=== PATIENT | female | born 1970 | race Caucasian/White ===

== ENCOUNTER → 2022-09-07 15:08 | Outpatient (CLI) | payer OTHER, MEDICAID, SELFPAY | PROVIDERS: PCP Family Medicine; Visit Provider Family Medicine | DX: L02.91 Cutaneous abscess, unspecified (principal) | CPT/HCPCS: 87070; 87075; 87077; 87186; 87205 ==

== ENCOUNTER → 2023-02-15 14:38 | Outpatient (CLI) | payer OTHER, MEDICAID, SELFPAY ==
--- NOTE | 2023-02-15 14:40 | DI.US.S_ITS ---
PROCEDURE: US EXTREMITY NONVASC LOWER LT INDICATIONS: POSTERIOR KNEE PAIN EVALUATE FOR BAKERS CYST TECHNIQUE: Real-time scanning was performed of the left popliteal fossa, with image documentation. COMPARISON: [facility] ([facility]), CR, XR KNEE LT 3V, 02/07/2023, 16:45. FINDINGS: Images of the left popliteal fossa demonstrate no focal fluid collection or cyst. No significant sonographic abnormality is seen. IMPRESSION: No Rivers cyst or significant sonographic abnormality at the popliteal fossa. Approved by: Naresh Conklin M.D. on 02/15/2023 at 17:14
== END ==
PROVIDERS: PCP Family Medicine; Referring Provider Family Medicine; Visit Provider Family Medicine
DX: Z86.19 Personal history of other infectious and parasitic diseases (principal); M25.562 Pain in left knee
CPT/HCPCS: 76882

== ENCOUNTER → 2023-02-20 13:27 | Outpatient (CLI) | payer OTHER, MEDICAID, SELFPAY ==
[2023-02-20 19:35] LABS: Add Manual Diff / Slide Review NO; Basophils Absolute Auto 0 /uL (0-100); Basophils Percent Auto 0.6 % (0-2); Eosinophils Absolute Auto 0 /uL (0-450); Eosinophils Percent Auto 0.4 % (2-4); Hematocrit 41.2 % (41-53); Hemoglobin 14.3 g/dL (13.5-17.5); Lymphocytes Absolute Auto 1400 /uL (1100-4500); Lymphocytes Percent Auto 32.4 % (25-40); Mean Corpuscular HGB Conc 34.7 % (30-36); Mean Corpuscular Hemoglobin 31.2 PG (26-34); Mean Corpuscular Volume 89.9 fL (80-100); Monocytes Absolute Auto 400 /uL (0-900); Monocytes Percent Auto 8.8 % (3-14); Neutrophils Absolute Auto 2500 /uL (1500-7000); Neutrophils Percent Auto 57.8 % (50-75); Platelet Count 206 X10^3/uL (150-400); Red Blood Cell Count 4.58 X10^6/uL (4.5-5.9); Red Cell Distribution Width 12.5 % (11.6-14.8); White Blood Cell Count 4.3 X10^3/uL (4.5-11.0)
[2023-02-20 19:45] LABS: Alanine Aminotransferase 26 IU/L (<50); Albumin 4.3 g/dL (3.5-5.0); Albumin Globulin Ratio 1.5 (1.0-2.8); Alkaline Phosphatase 47 U/L (38-126); Aspartate Aminotransferase 42 IU/L (17-59); BUN Creatinine Ratio 17.4 (6-22); Bilirubin Total 0.4 mg/dL (0.2-1.3); Blood Urea Nitrogen 12 mg/dL (9-20); Calcium 9.6 mg/dL (8.4-10.2); Carbon Dioxide 31 mmol/L (22-32); Chloride 96 mmol/L (98-107); Estimated Glomerular Filt Rate > 60 mL/min (>60); Globulin 2.9 g/dL (1.7-4.1); Glucose 91 mg/dL (70-100); HEMOLYSIS < 15 (0-50); Potassium 4.3 mmol/L (3.4-5.1); Sodium 133 mmol/L (137-145); Total Protein 7.2 g/dL (6.3-8.2); Uric Acid 5.5 mg/dL (3.5-8.5)
[2023-02-20 19:58] LABS: High Sensitivity CRP - Cardiac < 0.3 mg/L (1.0-3.0); LDL Cholesterol Direct 92 mg/dL (<100)
[2023-02-20 19:59] LABS: Rheumatoid Factor < 8.6 IU/mL (<12.0)
[2023-02-20 20:19] LABS: Erythrocyte Sedimentation Rate 4 MM/HR (0-15)
[2023-02-24 18:03] LABS: ANA Screen, IFA Negative (.)
== END ==
PROVIDERS: PCP Family Medicine; Visit Provider Family Medicine
DX: M25.569 Pain in unspecified knee (principal); G62.9 Polyneuropathy, unspecified; Z86.19 Personal history of other infectious and parasitic diseases; Z13.1 Encounter for screening for diabetes mellitus; Z13.6 Encounter for screening for cardiovascular disorders
CPT/HCPCS: 80053; 83721; 84550; 85025; 85651; 86038; 86140; 86430

== ENCOUNTER → 2023-05-26 11:16 | Outpatient (CLI) | payer OTHER, MEDICAID, SELFPAY ==
--- NOTE | 2023-05-26 11:17 | DI.MRI.S_ITS ---
PROCEDURE: MR KNEE LT WO CON INDICATIONS: Left knee pain TECHNIQUE: Noncontrast sagittal PD fast spin echo and T2 fast spin echo with fat saturation, sagittal 3-D FLASH with fat saturation; coronal T1 spin echo and PD fast spin echo with fat saturation, and axial PD fast spin echo with fat saturation through the knee. COMPARISON: None. FINDINGS: Image quality: Excellent. Menisci: The medial and lateral menisci demonstrate normal morphology and internal signal. The meniscal root ligaments appear intact. Cruciate ligaments: The anterior cruciate ligament is thickened. The posterior cruciate ligament is intact. Medial structures: The medial collateral ligament appears thickened with surrounding soft tissue edema near its femoral insertion. Visualized portions of the pes anserinus tendons appear normal. No abnormal bursal fluid. Lateral structures: The lateral collateral ligament, long and short heads of the biceps femoris tendon appear intact. The popliteus tendon appears normal. Iliotibial band appears normal. Anterior structures: Distal quadriceps tendon is thickened at its superior patellar insertion. Proximal patella tendon is also thickened at its inferior patellar insertion. Patellar alignment is normal. No edema in the infrapatellar fat pad. Bones and cartilage: No bone marrow contusions or fractures. Mild tricompartmental osteoarthritis and chondromalacia is seen more notably in medial femoral tibial compartment. Joint space: There is small knee joint fluid. There is a small popliteal cyst measures 1.8 x 1 x 4.1 cm in size. Normal appearing synovial plicae are incidentally noted. IMPRESSION: 1. 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 No fracture or dislocation. Small joint effusion and a small popliteal cyst. No gross loose bodies. 2. Low to moderate grade proximal MCL sprain/partial-thickness tear. The cruciate ligaments are intact. 3. No focal meniscal tear. 4. Distal quadriceps tendinosis and proximal patellar tendinosis. Dictated by: Abilio Cross M.D. on 05/27/2023 at 12:19 Approved by: Abilio Cross M.D. on 05/27/2023 at 12:26
== END ==
LOC: MRI 11:16
PROVIDERS: PCP Family Medicine; Referring Provider Family Medicine; Visit Provider Family Medicine
DX: M17.12 Unilateral primary osteoarthritis, left knee (principal); S83.412A Sprain of medial collateral ligament of left knee, initial encounter; M25.562 Pain in left knee; M94.262 Chondromalacia, left knee; M25.462 Effusion, left knee; G89.29 Other chronic pain
CPT/HCPCS: 73721

== ENCOUNTER → 2023-12-25 14:23 | Outpatient (CLI) | payer OTHER, MEDICAID, SELFPAY ==
--- NOTE | 2023-12-25 14:26 | DI.RAD.S_ITS ---
PROCEDURE: XR SHOULDER RT MIN 2V INDICATIONS: past hx R.shoulder injury. worsening pain. decrease ROM TECHNIQUE: 3 views of the shoulder were acquired. COMPARISON: None. FINDINGS: Bones: No fractures or dislocations. No suspicious bony lesions. Visualized ribs appear intact. Mild acromioclavicular narrowing. Soft tissues: No suspicious soft tissue calcifications. IMPRESSION: No visualized acute fracture or dislocation. However, if clinical concern and/or pain persist, short interval imaging followup in 7-10 days is recommended, as occult injury cannot be definitively excluded. Dictated by: Daniela Villafuerte M.D. on 12/25/2023 at 22:32 Approved by: Daniela Villafuerte M.D. on 12/25/2023 at 22:32
--- NOTE | 2023-12-25 14:26 | DI.RAD.S_ITS ---
PROCEDURE: XR CERVICAL SPINE 2V OR 3V INDICATIONS: Neck pain with radiculopathy TECHNIQUE: 3 view(s) of the cervical spine were acquired. COMPARISON: None. FINDINGS: Bones: No fractures or dislocations to the T1 level. The lateral masses of C1 appear intact on the odontoid view. No suspicious bony lesions. There is trace retrolisthesis of C4 on C5, C5-C6 and C6 on C7. There is moderate to severe disc space narrowing at C5-6, C6-7. Multilevel uncovertebral arthropathy is present. Soft tissues: No prevertebral soft tissue swelling. IMPRESSION: Degenerative changes as above. Dictated by: Daniela Villafuerte M.D. on 12/25/2023 at 22:31 Approved by: Daniela Villafuerte M.D. on 12/25/2023 at 22:31
== END ==
LOC: RAD 14:25
PROVIDERS: PCP Family Medicine; Referring Provider Physician Assistant; Visit Provider Physician Assistant
DX: S49.91XA Unspecified injury of right shoulder and upper arm, initial encounter (principal); M25.511 Pain in right shoulder; M47.812 Spondylosis without myelopathy or radiculopathy, cervical region; M54.2 Cervicalgia; X58.XXXA Exposure to other specified factors, initial encounter
CPT/HCPCS: 72040; 73030

== ENCOUNTER → 2024-03-15 14:26 | Outpatient (CLI) | payer OTHER, MEDICAID, SELFPAY ==
--- NOTE | 2024-03-15 14:28 | DI.MRI.S_ITS ---
PROCEDURE: MR SHOULDER RT WO CON INDICATIONS: ongoing right shoulder pain. PT/home exercises worsening johnathon TECHNIQUE: Noncontrast oblique coronal T2 fast spin echo with fat saturation, oblique sagittal T1 spin echo and T2 fast spin echo with fat saturation, axial T1 spin echo and T2 fast spin echo with fat saturation through the shoulder. COMPARISON: [facility], CR, XR SHOULDER RT MIN 2V, 12/25/2023, 14:25. FINDINGS: Image quality: Excellent. Rotator cuff: Distal supraspinatus and infraspinatus tendinosis at their insertions on greater trochanter. The subscapularis tendon is also thickened with suggestion of low-grade intrasubstance partial-thickness tear. No full-thickness rotator cuff tendon rupture. Sagittal images demonstrate no significant rotator cuff muscle atrophy. Bones and bursae: [id number] osteoarthritic changes are noted in acromioclavicular joint with joint space narrowing, subchondral sclerosis and small marginal osteophyte formation depressing the musculotendinous junction of supraspinatus. Marrow edema involving distal clavicle and adjacent acromion is seen without discrete fracture line. No other area of abnormal marrow signal. No significant joint effusion or subacromial subdeltoid bursal fluid. Capsule and soft tissues: There is fraying of superior anterior glenoid labrum with T2 hyperintense signal suggestive of superior anterior labral tear. The long head of the biceps tendon appears thickened. IMPRESSION: 1. Distal supraspinatus and infraspinatus tendinosis. Tendinosis and low-grade intrasubstance partial-thickness tear involving distal subscapularis. No full-thickness rotator cuff tendon rupture. No significant rotator cuff muscle atrophy. 2. [id number] acromioclavicular joint osteoarthritis. No fracture or dislocation. Contusion involving distal clavicle and adjacent acromion without discrete fracture line. No significant joint effusion or subacromial subdeltoid bursal fluid. 3. Finding is concerning for subtle superior anterior glenoid labral tear. 4. Proximal long head of biceps tendinosis. Dictated by: Abilio Cross M.D. on 03/16/2024 at 15:29 Approved by: Abilio Cross M.D. on 03/16/2024 at 15:44
--- NOTE | 2024-03-15 14:28 | DI.MRI.S_ITS ---
PROCEDURE: MR HEAD/BRAIN WO/W CON INDICATIONS: dizziness, vision changes, pulsations. TECHNIQUE: Noncontrast axial T1 spin echo, axial T2 fast spin echo, sagittal and axial FLAIR, coronal T2 fast spin echo, axial gradient echo, axial diffusion and ADC through the brain. After the administration of contrast, axial and coronal and sagittal 3D VIBE or T1 spin echo with fat saturation through the brain. COMPARISON: None. FINDINGS: Image quality: Excellent. CSF Spaces: Basal cisterns are patent. No extra-axial fluid collections. Ventricles are normal in size and shape. Brain: No midline shift. Prominent perivascular space in the left basal ganglia is incidentally noted. No intracranial bleeds or masses. No abnormal intracranial enhancement. The brainstem appears normal. Diffusion-weighted images demonstrate no acute infarct. No chronic ischemic insults. Normal intravascular flow voids are present. Skull and face: Calvarial marrow is normal in signal. Orbits appear normal. Sinuses: Sinuses and mastoids appear clear. IMPRESSION: No cause for patient's symptoms identified. No acute intracranial abnormalities. Dictated by: Edmond Wynn M.D. on 03/16/2024 at 11:40 Approved by: Edmond Wynn M.D. on 03/16/2024 at 11:45
== END ==
PROVIDERS: PCP Physician Assistant; Referring Provider Physician Assistant; Visit Provider Physician Assistant
DX: S49.91XA Unspecified injury of right shoulder and upper arm, initial encounter (principal); M19.011 Primary osteoarthritis, right shoulder; M25.511 Pain in right shoulder; R42 Dizziness and giddiness; H54.7 Unspecified visual loss; M77.8 Other enthesopathies, not elsewhere classified; Z84.89 Family history of other specified conditions
CPT/HCPCS: 70553; 73221; A9579

== ENCOUNTER → 2024-03-27 08:31 | Outpatient (CLI) | payer OTHER, MEDICAID, SELFPAY ==
[2024-03-27 17:02] LABS: Add Manual Diff / Slide Review NO; Basophils Absolute Auto 0 /uL (0-100); Eosinophils Absolute Auto 100 /uL (0-450); Eosinophils Percent Auto 1.7 % (2-4); Hematocrit 41.4 % (41-53); Hemoglobin 14.1 g/dL (13.5-17.5); Lymphocytes Absolute Auto 1200 /uL (1100-4500); Lymphocytes Percent Auto 36.8 % (25-40); Mean Corpuscular HGB Conc 34.1 % (30-36); Mean Corpuscular Hemoglobin 30.9 PG (26-34); Mean Corpuscular Volume 90.6 fL (80-100); Monocytes Absolute Auto 300 /uL (0-900); Monocytes Percent Auto 10.3 % (3-14); Neutrophils Absolute Auto 1600 /uL (1500-7000); Neutrophils Percent Auto 50.2 % (50-75); Platelet Count 191 X10^3/uL (150-400); Red Blood Cell Count 4.57 X10^6/uL (4.5-5.9); Red Cell Distribution Width 12.7 % (11.6-14.8); White Blood Cell Count 3.2 X10^3/uL (4.5-11.0)
[2024-03-27 17:03] LABS: Appearance Urine UA CLEAR; Bilirubin Urine UA NEGATIVE (NEGATIVE); Color Urine UA YELLOW; Glucose Urine UA NEGATIVE (Negative); Ketones Urine UA NEGATIVE (NEGATIVE); Leukocyte Esterase Urine UA NEGATIVE (NEGATIVE); Nitrite Urine UA NEGATIVE (Negative); Occult Blood Urine UA NEGATIVE (Negative); Protein Urine UA NEGATIVE (Negative); Specific Gravity Urine UA <=1.005 (1.000-1.035); Urobilinogen Urine UA 0.2 E.U./dL (0.2); pH Urine UA 6.5 (4.5-8.0)
[2024-03-27 17:07] LABS: Alanine Aminotransferase 28 IU/L (<50); Albumin 4.2 g/dL (3.5-5.0); Albumin Globulin Ratio 1.5 (1.0-2.8); Alkaline Phosphatase 40 U/L (38-126); Aspartate Aminotransferase 48 IU/L (17-59); BUN Creatinine Ratio 12.5 (6-22); Bilirubin Total 0.8 mg/dL (0.2-1.3); Blood Urea Nitrogen 10 mg/dL (9-20); Calcium 9.6 mg/dL (8.4-10.2); Carbon Dioxide 29 mmol/L (22-32); Chloride 101 mmol/L (98-107); Cholesterol 194 mg/dL (140-199); Estimated Glomerular Filt Rate > 60 mL/min (>60); Globulin 2.8 g/dL (1.7-4.1); Glucose 83 mg/dL (70-100); HDL Cholesterol 66 mg/dL (40-60); HEMOLYSIS 15 (0-50); LDL Cholesterol Calculated 115 mg/dL (<100); Potassium 4.2 mmol/L (3.4-5.1); Sodium 136 mmol/L (137-145); Triglycerides 65 mg/dL (35-150)
[2024-03-27 17:13] LABS: Bacteria Urine None Seen; Culture Indicated Urine Cult Not Indicated; RBC Urine None Seen (0-5/HPF); Squamous Epithelial Cell Urine None Seen (0-5/HPF); Urine Volume 10mL (spun); WBC Urine 0-1/HPF (0-5/HPF)
[2024-03-27 17:39] LABS: Prostate Specific Antigen Scrn 0.857 ng/mL (0.1-4.0)
[2024-03-30 15:05] LABS: HIV 1 & 2 Ab/Ag 4th Gen Combo NEGATIVE (NEGATIVE); Hep C Virus Ab w/Reflex Quant NEGATIVE s/c (NEGATIVE)
== END ==
PROVIDERS: PCP Physician Assistant; Visit Provider Physician Assistant
DX: Z11.59 Encounter for screening for other viral diseases (principal); Z11.4 Encounter for screening for human immunodeficiency virus [HIV]; L57.8 Other skin changes due to chronic exposure to nonionizing radiation; Z12.5 Encounter for screening for malignant neoplasm of prostate; Z13.6 Encounter for screening for cardiovascular disorders; Z12.11 Encounter for screening for malignant neoplasm of colon; G47.9 Sleep disorder, unspecified; Z79.899 Other long term (current) drug therapy
CPT/HCPCS: 80053; 80061; 81001; 84443; 85025; 86803; 87389; G0103

== ENCOUNTER → 2024-04-20 13:02 | Outpatient (CLI) | payer OTHER, SELFPAY ==
[2024-04-20 19:43] LABS: Add Manual Diff / Slide Review NO; Basophils Absolute Auto 0 /uL (0-100); Basophils Percent Auto 0.8 % (0-2); Eosinophils Absolute Auto 100 /uL (0-450); Eosinophils Percent Auto 1.2 % (2-4); Hematocrit 41.1 % (41-53); Hemoglobin 14.1 g/dL (13.5-17.5); Lymphocytes Absolute Auto 1400 /uL (1100-4500); Lymphocytes Percent Auto 33.3 % (25-40); Mean Corpuscular HGB Conc 34.4 % (30-36); Mean Corpuscular Volume 90.1 fL (80-100); Monocytes Absolute Auto 300 /uL (0-900); Neutrophils Absolute Auto 2500 /uL (1500-7000); Neutrophils Percent Auto 57.7 % (50-75); Platelet Count 246 X10^3/uL (150-400); Red Blood Cell Count 4.56 X10^6/uL (4.5-5.9); White Blood Cell Count 4.3 X10^3/uL (4.5-11.0)
[2024-04-20 20:50] LABS: Folate 9.7 ng/mL (2.76-20.0); Vitamin B12 719 pg/mL (239-931)
== END ==
PROVIDERS: PCP Physician Assistant; Visit Provider Physician Assistant
DX: R79.9 Abnormal finding of blood chemistry, unspecified (principal)
CPT/HCPCS: 82607; 82746; 85025